=== PATIENT | male | born 1950 | race Caucasian/White ===

== ENCOUNTER 2017-02-27 22:22 | Emergency (ER) | payer MEDICARE ==
[2017-02-27 23:20] VITALS: BP 161/96
[2017-02-27] MEDS ORDERED: Ketorolac 30 MG/ML SDV IVPUSH ONE (23:22)
[2017-02-27] MEDS ORDERED: Sodium Chloride 0.9% 10 ML Syringe FLUSH PRN (23:22)
--- NOTE | 2017-02-27 23:28 | EDM.PDOC ---
ED HPI GENERAL MEDICAL PROBLEM - General Chief Complaint: Flank Pain Stated Complaint: KIDNEY STONES Time Seen by Provider: 02/27/17 23:21 Source of Information: Reports: Patient, Family, Old Records, RN Notes Reviewed History Limitations: Reports: No Limitations - History of Present Illness INITIAL COMMENTS - FREE TEXT/NARRATIVE: 66-year-old gentleman presents emergency department today complaint of left flank pain he has a known history of renal stones has been working with his primary actually underwent CT scan on 02-16-17 of this month which shows nonobstructing stones both kidneys states for this particular event sudden onset pain very intense in nature does feel nauseated as well Left Flank Pain Score (Numeric/FACES): 10 - Related Data Allergies Allergy/AdvReac Type Severity Reaction Status Date / Time amoxicillin [Amoxicillin] Allergy Unknown Cannot Unverified 09/10/14 08:12 Remember Iodinated Contrast- Oral and Allergy Unknown Hives Unverified 09/10/14 08:12 IV Dye [Iodinated Contrast Media - IV Dye] nickel Allergy Cannot Unverified 09/10/14 08:12 Remember Home Meds: Home Meds LORazepam [Ativan] 1 mg PO DAILY PRN 06/10/13 [History] Levothyroxine Sodium [Synthroid] 50 mcg PO DAILY 06/10/13 [History] cycloSPORINE [Restasis] 1 drop EYEBOTH BID 06/10/13 [History] Gabapentin [Neurontin] 300 mg PO BEDTIME 09/08/14 [History] Glucosamine Sulfate 2KCl [Glucosamine] 1,000 mg PO DAILY 09/08/14 [History] Krill Oil 500 mg PO DAILY 09/08/14 [History] Meloxicam [Mobic] 15 mg PO DAILY 09/08/14 [History] Multivitamin [Multivitamins] 1 each PO DAILY 09/08/14 [History] Sildenafil [Viagra] 100 mg PO BEDTIME PRN 09/08/14 [History] Zinc 50 mg PO DAILY 09/08/14 [History] carBAMazepine [TEGretol Tab] 200 mg PO BID 09/08/14 [History] Celecoxib [CeleBREX] 200 mg PO DAILY 09/10/14 [History] Omeprazole 20 mg PO DAILY 09/10/14 [History] Past Medical History Genitourinary History: Reports: Renal Calculus Social & Family History - Tobacco Use Smoking Status *Q: Former Smoker Years of Tobacco use: 10 Used Tobacco, but Quit: Yes Month Tobacco Last Used: August Second Hand Smoke Exposure: No - Alcohol Use Days Per Week of Alcohol Use: 3 Number of Drinks Per Day: 3 Total Drinks Per Week: 9 - Recreational Drug Use Recreational Drug Use: No ED ROS GENERAL - Review of Systems Review Of Systems: See Below Constitutional: Reports: No Symptoms Respiratory: Reports: No Symptoms Cardiovascular: Reports: No Symptoms GI/Abdominal: Reports: Abdominal Pain : Reports: Flank Pain ED EXAM, RENAL/ - Physical Exam Exam: See Below Exam Limited By: No Limitations General Appearance: Alert, Moderate Distress Respiratory/Chest: No Respiratory Distress GI/Abdominal: Soft, Tender (Left flank) Course - Vital Signs Last Recorded V/S: Last Vital Signs Temp 97.5 F 02/28/17 00:08 Pulse 84 02/28/17 00:08 Resp 24 H 02/28/17 00:08 BP 161/96 H 02/28/17 00:08 Pulse Ox 99 02/28/17 00:08 - Orders/Labs/Meds Orders: Active Orders 24 hr Category Date Time Status Peripheral IV Care [RC] . DIRECTED Care 02/27/17 23:22 Active Sodium Chloride 0.9% [Normal Saline] 1,000 ml Med 02/27/17 23:30 Active IV ASDIRECTED Sodium Chloride 0.9% [Saline Flush] Med 02/27/17 23:22 Active 10 ml FLUSH ASDIRECTED PRN Peripheral IV Insertion Adult [OM.PC] Urgent Oth 02/27/17 23:21 Ordered Medication Orders Sodium Chloride (Normal Saline) 1,000 mls @ 500 mls/hr IV ASDIRECTED YOSSI Last Admin: 02/27/17 23:40 Dose: 500 mls/hr Sodium Chloride (Saline Flush) 10 ml FLUSH ASDIRECTED PRN PRN Reason: Keep Vein Open Last Admin: 02/27/17 23:41 Dose: 10 ml Labs: Laboratory Tests 02/28/17 Range/Units 00:18 Urine Color Tarkio Urine Appearance Cloudy Urine pH 5.0 (4.5-8.0) Ur Specific Marcus 1.020 (1.008-1.030) Urine Protein Negative (NEGATIVE) mg/dL Urine Glucose (UA) Normal (NEGATIVE) mg/dL Urine Ketones Negative (NEGATIVE) mg/dL Urine Occult Blood Large (NEGATIVE) Urine Nitrite Negative (NEGAITVE) Urine Bilirubin Negative (NEGATIVE) Urine Urobilinogen Normal (NORMAL) mg/dL Ur Leukocyte Esterase Negative (NEGATIVE) Urine RBC Packed H (0-5) Urine WBC 0-5 (0-5) Ur Epithelial Cells Few Amorphous Sediment Few Urine Bacteria Few Urine Mucus Few Meds: Medications Generic Name Dose Route Start Last Admin Trade Name Tano PRN Reason Stop Dose Admin Sodium Chloride 1,000 mls @ 500 mls/hr 02/27/17 23:30 02/27/17 23:40 Normal Saline IV 500 mls/hr ASDIRECTED YOSSI Administration Sodium Chloride 10 ml 02/27/17 23:22 02/27/17 23:41 Saline Flush FLUSH 10 ml ASDIRECTED PRN Administration Keep Vein Open Discontinued Medications Generic Name Dose Route Start Last Admin Trade Name aTno PRN Reason Stop Dose Admin Hydromorphone HCl 1 mg 02/27/17 23:52 02/28/17 00:00 Dilaudid IVPUSH 02/27/17 23:53 1 mg ONETIME ONE Administration Ketorolac Tromethamine 30 mg 02/27/17 23:22 02/27/17 23:38 Toradol IVPUSH 02/27/17 23:23 30 mg ONETIME ONE Administration Departure - Departure Time of Disposition: 01:08 Disposition: Home, Self-Care 01 Condition: Good Clinical Impression: Flank pain - Discharge Information Forms: ED Department Discharge Additional Instructions: Use Percocet as needed to control pain, please contact your primary care provider for review and possible sooner visit with urology - My Orders Last 24 Hours: My Active Orders 02/27/17 23:21 Peripheral IV Insertion Adult [OM.PC] Urgent 02/27/17 23:22 Peripheral IV Care [RC] . DIRECTED Sodium Chloride 0.9% [Saline Flush] 10 ml FLUSH ASDIRECTED PRN 02/27/17 23:30 Sodium Chloride 0.9% [Normal Saline] 1,000 ml IV ASDIRECTED - Assessment/Plan Last 24 Hours: My Active Orders 02/27/17 23:21 Peripheral IV Insertion Adult [OM.PC] Urgent 02/27/17 23:22 Peripheral IV Care [RC] . DIRECTED Sodium Chloride 0.9% [Saline Flush] 10 ml FLUSH ASDIRECTED PRN 02/27/17 23:30 Sodium Chloride 0.9% [Normal Saline] 1,000 ml IV ASDIRECTED Plan: Assessment Acuity = acute Site and laterality = probable left nephrolithiasis Etiology = unclear etiology Manifestations = pain Location of injury = Home Lab values = urinalysis packed rbc's consistent hematuria Plan Did review CT scan from February 16 which shows a 5 mm nonobstructing stones at that time suspicious for stone has moved due to symptoms and urinalysis findings, he did receive good relief from commendation Toradol and Dilaudid he'll be discharged home with Percocet No. 10 he does have a follow-up appointment with urology Patient was in agreement with the plan all questions were answered, they were instructed to return to the emergency department or call for worsening symptoms. This note was dictated using Zero9 voice recognition software please call with any questions.
[2017-02-27] MEDS ORDERED: Sodium Chloride 0.9% 1,000 ML IV SCH (23:30)
[2017-02-27] MEDS ORDERED: HYDROmorphone 1 MG/ML Syringe IVPUSH ONE (23:52)
[2017-02-28] MEDS ORDERED: HYDROmorphone 1 MG/ML Syringe IVPUSH ONE (01:16)
== END 2017-02-28 01:59 | disposition home or self-care (01) ==
LOC: JP.ED 22:22
DX: R10.9 Unspecified abdominal pain (principal); Z88.1 Allergy status to other antibiotic agents; Z91.09 Other allergy status, other than to drugs and biological substances; Z91.041 Radiographic dye allergy status; Z87.891 Personal history of nicotine dependence; Z79.899 Other long term (current) drug therapy
CPT/HCPCS: 81001; 96361; 96374; 96375; 96376; 99283; 99284; J1170; J1885; J7040; J7050

== ENCOUNTER 2018-11-14 08:37 | Day surgery (SDC) | payer MEDICARE ==
[2018-11-14] MEDS ORDERED: Lactated Ringers 1,000 ML IV SCH (09:15)
[2018-11-14] MEDS ORDERED: Midazolam 1 MG/ML 2 ML SDV ONE (09:42)
[2018-11-14] MEDS ORDERED: fentaNYL 100 MCG/2 ML SDV ONE (09:42)
[2018-11-14] MEDS ORDERED: Propofol 200 MG/20 ML SDV ONE ×2 (09:42→10:53)
[2018-11-14 12:07] VITALS: BP 143/88
--- NOTE | 2018-11-17 14:23 | OR ---
DATE OF PROCEDURE: 11/14/2018 PREOPERATIVE DIAGNOSES: Gastroesophageal reflux disease, use of proton pump inhibitor, history of gastric polyps. POSTOPERATIVE DIAGNOSES: Gastroesophageal reflux disease, use of proton pump inhibitor, gastric polyps. PROCEDURE PERFORMED: Esophagogastroduodenoscopy with antral biopsies for CLOtest and for pathology to look for Helicobacter pylori, gastric polypectomy, biopsy of gastroesophageal junction. ANESTHESIA: IV anesthesia with monitored anesthesia care. INDICATIONS: This 68-year-old white male is referred for upper endoscopy because of gastroesophageal reflux disease. He is using a proton pump inhibitor. He has had gastric polyps in the past. I counseled him for upper endoscopy with possible biopsy including risks and alternatives, and he gave his informed consent to proceed. DESCRIPTION OF PROCEDURE: The patient was placed in the left lateral decubitus position. IV anesthesia was administered by the Anesthesia Service. Time-out was held. The flexible video Olympus upper endoscope was passed through his mouth down his esophagus and into his stomach. The scope was easily passed through the pylorus into the duodenum reaching its third portion. The scope was then slowly withdrawn examining the mucosa throughout. The duodenal mucosa appeared unremarkable. The scope was brought up through the pylorus. The antrum appeared fairly unremarkable. However, he is using a proton pump inhibitor and he has had fundic gland polyps. We did do biopsies of the antrum for CLOtest and for pathology to look for Helicobacter pylori. We also saw a few more polyps which were removed with the biopsy forceps. The scope was retroflexed. The most proximal stomach appeared unremarkable. The scope was straightened and brought up to the GE junction. There was evidence of gastroesophageal reflux disease. The Z-line was not straight. We obtained multiple totalling at least 6 biopsies of the gastroesophageal junction. The scope was then brought proximally up through the remainder of the esophagus which otherwise appeared unremarkable and it was removed. Jeovanny Espinosa MD /[id number]
== END 2018-11-14 12:10 | disposition home or self-care (01) ==
LOC: JP.SDS 08:37
PROVIDERS: ATTEND Surgery
DX: K21.9 Gastro-esophageal reflux disease without esophagitis (principal); K29.50 Unspecified chronic gastritis without bleeding; K31.7 Polyp of stomach and duodenum; F41.9 Anxiety disorder, unspecified; Z87.19 Personal history of other diseases of the digestive system; Z97.8 Presence of other specified devices
CPT/HCPCS: 43239; 87081; 88305; J2250; J2704; J3010; J7120

== ENCOUNTER 2019-02-11 05:47 | Day surgery (SDC) | payer MEDICARE ==
[2019-02-11] MEDS ORDERED: Gabapentin 300 MG Cap PO ONE (06:30)
[2019-02-11] MEDS ORDERED: Povidone-Iodine 10% Soln 118.25 ML Bottle ONE (06:32)
[2019-02-11] MEDS ORDERED: Bupivacaine 0.25% 10 ML SDV ONE ×3 (06:32→10:09)
[2019-02-11] MEDS: Nozin Nasal Sanitizer NASBOTH SCH ×3 (06:53→21:34)
[2019-02-11] MEDS ORDERED: Glycopyrrolate 0.2 MG/ML 5 ML MDV ONE (07:16)
[2019-02-11] MEDS ORDERED: Rocuronium 50 MG/5 ML Vial ONE (07:16)
[2019-02-11] MEDS ORDERED: Ondansetron 4 MG/2 ML SDV ONE (07:16)
[2019-02-11] MEDS ORDERED: Succinylcholine 200 MG/10 ML MDV ONE (07:16)
[2019-02-11] MEDS ORDERED: Neostigmine Methylsulfate 1 MG/ML 5 ML Syringe ONE (07:16)
[2019-02-11] MEDS ORDERED: Propofol 200 MG/20 ML SDV ONE (07:16)
[2019-02-11] MEDS ORDERED: Dexamethasone 4 MG/ML SDV ONE (07:16)
[2019-02-11] MEDS: Lactated Ringers 1,000 ML IV SCH ×2 (07:31→21:31)
[2019-02-11] MEDS ORDERED: ceFAZolin 2 GM in Premix Bag 1 BAG IV ONE (08:00)
[2019-02-11] MEDS ORDERED: Acetaminophen 325 MG Tab PO PRN (10:58)
[2019-02-11] MEDS ORDERED: Morphine 2 MG/ML Syringe IVPUSH PRN (11:05)
[2019-02-11] MEDS ORDERED: LORazepam 1 MG Tab PO PRN (11:07)
[2019-02-11] MEDS ORDERED: Albuterol 8 GM Inhaler INH PRN (11:07)
[2019-02-11] MEDS: Acetaminophen/oxyCODONE 325-5 MG Tab PO PRN ×3 (11:52→21:43)
--- NOTE | 2019-02-11 12:41 | CR ---
Knee 1V or 2V Rt CLINICAL HISTORY: Post right knee arthroplasty FINDINGS: Patient has undergone a medial right knee hemiarthroplasty. Components appear well seated. Impression: Status post medial right knee hemiarthroplasty
[2019-02-11] MEDS: ceFAZolin 1 GM in Premix Bag 1 BAG IV SCH ×2 (14:52→23:05)
[2019-02-11] MEDS: Ondansetron 4 MG/2 ML SDV IVPUSH PRN ×2 (17:01→21:35)
[2019-02-11] MEDS ORDERED: diphenhydrAMINE 25 MG Cap **OWN MED PO PRN (20:55)
[2019-02-11] MEDS ORDERED: Melatonin 3 MG Tab PO SCH (21:00)
[2019-02-11] MEDS ORDERED: Non-Formulary Medication 1 Each (Melatonin [Melatonin] 5 MG) PO SCH (21:00)
[2019-02-11] MEDS ORDERED: MELATONIN 5 MG PO SCH (21:15)
[2019-02-11] MEDS: Docusate Sodium 100 MG Cap PO PRN (21:35)
[2019-02-12] MEDS: Acetaminophen/oxyCODONE 325-5 MG Tab PO PRN ×3 (02:37→11:49)
[2019-02-12] MEDS: Acetaminophen/HYDROcodone 325-5 MG Tab PO PRN ×2 (05:48→14:05)
[2019-02-12] MEDS ORDERED: Levothyroxine 50 MCG Tab PO SCH (07:30)
[2019-02-12] MEDS ORDERED: Pantoprazole 40 MG Tab.CR PO SCH (07:30)
[2019-02-12] MEDS: ceFAZolin 1 GM in Premix Bag 1 BAG IV SCH (07:39)
[2019-02-12] MEDS: Docusate Sodium 100 MG Cap PO PRN (07:47)
[2019-02-12] MEDS: Nozin Nasal Sanitizer NASBOTH SCH (08:24)
[2019-02-12] MEDS ORDERED: Celecoxib 200 MG Cap PO SCH (09:00)
[2019-02-12] MEDS ORDERED: Non-Formulary Medication 1 Each (Esomeprazole [Nexium] 20 MG) PO SCH (09:00)
[2019-02-12] MEDS ORDERED: Aspirin 81 MG Tab.EC PO SCH (09:00)
[2019-02-12 10:38] VITALS: BP 126/75
--- NOTE | 2019-02-13 18:04 | OR ---
DATE OF PROCEDURE: 02/11/2019 PREOPERATIVE DIAGNOSES: 1. Osteoarthritis, right knee, medial compartment. 2. 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 POSTOPERATIVE DIAGNOSES: 1. Osteoarthritis, right knee, medial compartment. 2. 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 PROCEDURES: 1. Medial unicompartmental arthroplasty, right knee, using [employer] ZUK tibial baseplate and the Oxinium Journey femoral component. 2. Arthroscopy of left knee with lysis of adhesions, debridement of arthrofibrosis and manipulation under anesthesia. ANESTHESIA: General. INDICATIONS: Mr. Lopez is a 68-year-old gentleman with a history of osteoarthritis in both knees. He had previously undergone a left total knee arthroplasty approximately 6 years ago. He has had difficulty since implantation with pain and stiffness. He has had previous treatments for the stiffness, which have worked for a short period of time, but eventually result in recurring limited range of motion and pain. He now presents with less than 90 degrees of flexion. There was some concern that his nickel sensitivity is causing reaction in the synovium with scarring. Osteoarthritis of the right knee is being treated with a medial unicompartmental arthroplasty using the Oxinium component to prevent exposure to the rob or other metals. Risks, benefits, and potential complications of procedure were discussed. He is aware that if he does have significant metal allergy reaction that the arthrofibrosis may return in the left knee. DESCRIPTION OF PROCEDURE: After adequate anesthesia was obtained, the patient was placed supine with tourniquets about both upper thighs. Both legs were then prepped and draped in a sterile fashion. Left leg was covered with a sterile drape and procedure began on the right side. An incision was made just slightly medial of midline from the superior aspect of the patella to the tibial tubercle. This was carried down through the subcutaneous tissues. A medial peritendinous arthrotomy was then performed and carried up just to the insertion of the VMO. A portion of the capsule was released anteriorly, and the fat pad and anterior horn of the medial meniscus were excised. Examination of the knee revealed complete articular cartilage loss of the medial femoral condyle with burnishing of the underlying bone. Patellofemoral joint was inspected, and this revealed intact articular cartilage on the trochlear groove and femoral trochlea. Decision was made to continue with the unicompartment arthroplasty rather than proceed with a total knee arthroplasty. The anterior lip of the tibial plateau was resected with an oscillating saw. The leg was extended, and the extramedullary alignment jig was then secured. This was aligned with the tibia. Femoral cutting jig was secured. Distal femoral cut was then made. The femoral cutting guide was removed along with the portion of the distal femur with an osteotome. The knee was then flexed, and the proximal tibia was then resected using a combination of reciprocating oscillating saws. Remaining meniscus was excised. This showed significant complex tear in the posterior horn. The femur was then sized and cutting jig was then secured. 2 PEG holes were drilled and remaining femoral cuts were then made. The trial femur was placed with excellent fit. Flexion-extension gaps were then checked. It showed significant tightness in both, and the tibia was then re-cut removing approximately additional 3 mm. Tibial tray was sized to a #2. Trial plate was placed and PEG holes were drilled. The knee was then trialed with an 8 mm insert, which provided excellent balance in flexion and extension with a 2-mm gap in both. Trials were removed. The knee was then thoroughly irrigated. The surfaces were dried and components were then implanted with cement. Excess cement was removed and the knee was held in full extension with an 8 mm trial insert as the cement cured. Again, flexion-extension gaps were checked with good balance. The trial was removed. His knee was irrigated, and the final polyethylene was snapped into place. The wound was then irrigated with dilute Betadine followed by pulse irrigation. Capsule was then closed with a #1 Ethibond in a running fashion. Skin was closed with 2-0 Vicryl and a running 3-0 Monocryl. Steri-Strips were applied. Tourniquet was released and light dressing was placed on the right side. Right side was then covered in the drape and the left leg was uncovered, wiped down with Betadine, and the procedure continued with arthroscopy on the left. The anterolateral portal was established taking care to avoid direct contact with the knee components. The scope was introduced and a medial portal was established under direct visualization. A significant amount of thick white capsular tissue was present in both the medial and lateral gutters. The shaver was introduced, and this was debrided. Removal of this tissue continued up along the medial gutter and medial aspect of the patellar component using combination of the shaver and a radiofrequency ablation wand to avoid direct contact with the shaver to the articular surfaces. Moving up into the suprapatellar pouch. Significant scar tissue was present with a very thick capsular lining, which had the consistency of a rubber. Portions of this were collected and be sent for pathology evaluation for inflammatory cells. Using a combination of the shaver and ablation wand, scar tissue and adhesions were released. Once the limits of the medial portal were reached, the scope was switched to the medial portal and debridement continued on the lateral gutter and up along the lateral parapatellar region. Similar thick bands of capsule and synovium were present. This again was carried up along the lateral gutter into the suprapatellar pouch. When the limits of this was reached, further adhesions and thickened capsule were still present and an accessory portal was made in the superomedial aspect. Working through this portal, the remaining portions of the capsule and adhesions were released. Once this was accomplished, the knee was drained and the scope was withdrawn. The knee was then flexed and manipulated for an improvement in flexion to approximately 115 degrees. The scope was then reintroduced and any additional adhesions or fibrous tissue were removed. The knee was drained and scope was withdrawn once again. The knee was again manipulated into flexion and flexion just slightly beyond 115 degrees could be obtained. Scar tissue and adhesions were released in both medial and lateral gutters along the joint surface, but no attempt was made to reach the posterior capsule. The patient does have a slight flexion contracture, but it was thought that this was not significantly limiting his activity or affecting his gait and no attempt was made to release this. Port sites were then closed in standard fashion. Knee was infiltrated with Marcaine and a sterile dressing was applied. The patient tolerated the procedure well. There were no complications. He was taken from the operating room in a stable condition. Marko Greene MD /[id number]
== END 2019-02-12 14:20 | disposition home or self-care (01) ==
LOC: JP.SDS 05:47 → JP.MS 10:58 → JP.SDS 02-12 14:20
PROVIDERS: ATTEND Specialist
DX: M17.11 Unilateral primary osteoarthritis, right knee (principal); M24.662 Ankylosis, left knee; E03.9 Hypothyroidism, unspecified; F41.9 Anxiety disorder, unspecified; J45.20 Mild intermittent asthma, uncomplicated; K21.9 Gastro-esophageal reflux disease without esophagitis; D75.1 Secondary polycythemia; G89.29 Other chronic pain; M54.5 Low back pain; Z98.1 Arthrodesis status; Z96.652 Presence of left artificial knee joint; Z87.891 Personal history of nicotine dependence; Z79.1 Long term (current) use of non-steroidal anti-inflammatories (NSAID); Z79.899 Other long term (current) drug therapy; Z91.048 Other nonmedicinal substance allergy status
CPT/HCPCS: 27446; 29884; 73560; 97110; 97140; 97162; 97165; 97530; 97535; A9270; C1713; J0330; J0690; J1100; J2405; J2704; J2710; J3010; J3490; J7120

== ENCOUNTER 2019-12-05 06:17 | Day surgery (SDC) | payer MEDICARE ==
[2019-12-05] MEDS ORDERED: Sodium Chloride 0.9% 1,000 ML IV SCH (07:00)
[2019-12-05] MEDS ORDERED: fentaNYL 100 MCG/2 ML SDV ONE (07:24)
[2019-12-05] MEDS ORDERED: Midazolam 1 MG/ML 2 ML SDV ONE (07:24)
[2019-12-05] MEDS ORDERED: Propofol 200 MG/20 ML SDV ONE ×2 (07:25→08:15)
[2019-12-05] MEDS ORDERED: ceFAZolin 2 GM in Premix Bag 1 BAG IV ONE (08:00)
--- NOTE | 2019-12-05 09:01 | OR ---
DATE OF PROCEDURE: 12/05/2019 SURGEON: Eben Brown MD PROCEDURE: Colonoscopy. FINDINGS: 1. Multiple small 5 mm polyps, approximately 500 (very rough estimate), all mostly around 5 mm. 2. Diverticulosis, mild. COMPLICATIONS: None. PANEL MACHINE TENDER: None. ANESTHESIA: MAC. PREOPERATIVE DIAGNOSIS: Positive fecal immunochemical test. POSTOPERATIVE DIAGNOSIS: Positive fecal immunochemical test. PROCEDURE RISKS: The risks, benefits, alternatives, and limitations including, but not limited to infection, bleeding, and perforation explained to the patient and wished to proceed. PROCEDURE IN DETAIL: The patient was placed in left lateral decubitus position. Digital rectal exam was performed without abnormality. The scope was introduced and advanced atraumatically to the ileocecal valve. A photo was taken. The scope was brought back through the ascending, transverse, descending colon, and retroflexed. Throughout the entire colon, the patient had small 5 mm polyps. There was 1 more plaque like one in the ascending colon called ascending #2. Multiple polyps of these were the sampled for diagnostic purposes. There was no active bleeding. No other significant abnormalities. No abnormalities on retroflexion. The patient tolerated the procedure well. Eben Brown MD /[id number]
[2019-12-05 10:19] VITALS: PULSE 75
[2019-12-05 10:20] VITALS: BP 137/88
--- NOTE | 2019-12-05 11:23 | CR ---
Abdomen 1V Flat CLINICAL HISTORY: Flank pain FINDINGS: Intestinal gas pattern is nonacute. There is bowel content overlying the right upper quadrant. There is a tiny calcific density in the region of the lower pole of the right kidney which is suspect for renal calculi which was seen on a CT from 2017. IMPRESSION: Nonacute intestinal gas pattern Probable tiny right renal calcification. This area is partially obscured by bowel content
== END 2019-12-05 10:32 | disposition home or self-care (01) ==
LOC: JP.SDS 06:17
PROVIDERS: ATTEND Surgery
DX: D12.2 Benign neoplasm of ascending colon (principal); D12.4 Benign neoplasm of descending colon; D12.5 Benign neoplasm of sigmoid colon; K57.30 Diverticulosis of large intestine without perforation or abscess without bleeding; Z86.010 Personal history of colon polyps
CPT/HCPCS: 45380; 74018; 81003; 88305; 88341; 88342; J0690; J2250; J2704; J3010; J7030